=== PATIENT | male | born 1960 | race Two or more races ===

== ENCOUNTER → 2016-08-13 | Outpatient (CLI) | payer MEDICAID ==
[~2016-08-13] VITALS: Ht 160 cm; Wt 86.2 kg
[~2016-08-13] MED LIST: CALC0.5C PO; DOCU150L3 PO; FURO40TA4 PO; METO25TA5 PO; NIFE60TA53 PO; SEVE800T8 PO; SIMV-13 PO
== END | disposition home or self-care (01) ==
LOC: Rad HDHVI 09:57
PROVIDERS: ATTEND Internal Medicine Cardiovascular Disease
DX: I10 Essential (primary) hypertension (principal); I25.10 Atherosclerotic heart disease of native coronary artery without angina pectoris; E78.00 Pure hypercholesterolemia, unspecified; Z98.61 Coronary angioplasty status; I25.5 Ischemic cardiomyopathy; I51.7 Cardiomegaly
CPT/HCPCS: 78452; 93017; 93306; 96374; A9500